=== PATIENT | male | born 1970 | race Caucasian/White ===

== ENCOUNTER 2022-07-30 13:18 | Inpatient (IN) | payer OTHER ==
--- NOTE | 2022-07-30 16:09 | NUR ---
SHIFT SUMMARY PT A&OX4, VSS/RA, DENIES N&V, PAIN 5/10 DENIES NEED FOR PAIN MEDICATION, INDEPENDENT IN ROOM, VOIDING, IVF @ 125 MLS/HR AND ZOSYN Q6 PER EMAR. DR AVITIA CONSULTED PT AND APPROVED NPO/SMALL AMT ICE CHIPS AND PO PAIN MEDS PRN. WILL REPORT TO ONCSMOOTH SKINNER RN.
[2022-07-31 04:18] LABS: BASOPHILS ABSOLUTE AUTO 0.02 K/mm3 (0.00-0.23); BASOPHILS PERCENT AUTO 0 % (0-2); EOSINOPHILS ABSOLUTE AUTO 0.05 K/mm3 (0.00-0.68); EOSINOPHILS PERCENT AUTO 1 % (0-6); Hematocrit 41.2 % (37.0-53.0); IMMATURE GRAN ABSOLUTE AUTO 0.02 K/mm3 (0.00-0.10); IMMATURE GRAN PERCENT AUTO 0 % (0-1); LYMPHOCYTES ABSOLUTE AUTO 1.33 K/mm3 (0.84-5.20); LYMPHOCYTES PERCENT AUTO 13 % (21-46); MONOCYTES ABSOLUTE AUTO 1.31 K/mm3 (0.16-1.47); MONOCYTES PERCENT AUTO 13 % (4-13); Mean Corpuscular HGB 31.2 pg (26.0-34.0); Mean Corpuscular Volume 92 fL (80-100); Mean Platelet Volume 8.7 fL (9.1-12.4); NEUTROPHILS ABSOLUTE AUTO 7.35 K/mm3 (1.96-9.15); NEUTROPHILS PERCENT AUTO 73 % (41-73); Platelet Count 196 K/mm3 (150-400); RDW Coefficient Variation 12.1 % (11.7-14.2); RDW Standard Deviation 40.9 fL (35.1-46.3); Red Blood Cell Count 4.49 M/mm3 (4.30-5.90); White Blood Cell Count 10.08 K/mm3 (4.00-11.30)
[2022-07-31 04:39] LABS: Albumin, Blood 3.3 g/dL (3.4-5.0); Bilirubin, Total 1.2 mg/dL (0.1-1.0); Bun/Creatinine Ratio 14.5 (12.0-20.0); Calcium, Blood 8.9 mg/dL (8.5-10.1); Creatinine, Blood 1.24 mg/dL (0.60-1.20); Globulin, Blood 3.3 g/dL (2.2-4.0); Potassium, Blood 4.1 mmol/L (3.5-5.5); Total Protein, Blood 6.6 g/dL (6.4-8.2)
--- NOTE | 2022-07-31 04:47 | NUR ---
REGIONAL BRANCH MANAGER SUMMARY PT AAOX4 AND PLEASANT. INDEPENDENT IN ROOM. ADMITTED FOR PERFED DIVERTICULITIS. PT DENIES N/V, ONLY REPORTS ABD PAIN. PAIN HAS BEEN WELL CONTROLLED WITH OXYCODONE 5 MG. PT HAS BEEN ABLE TO SLEEP MOST OF THE NIGHT. NPO EXCEPT MEDS AND ICE CHIPS, TOLERATING WELL. IV ZOSYN Q6 HR. VSS, WILL CONTINUE TO MONITOR.
--- NOTE | 2022-07-31 06:22 | NUR ---
PT REPORTED NOT VOIDING SINCE JUST BEFORE START OF SHIFT TONIGHT BUT STATED THAT IS NOT UNUSUAL FOR HIM AND THAT HE USUALLY VOIDS IN THE AM AFTER HE GETS UP AND WALKS AROUND A BIT. PT DENIED BLADDER SCAN. EDUCATED PT ON POSSIBLE NEED TO BLADDER SCAN IF PT UNABLE TO VOID BY LATER THIS AM.
--- NOTE | 2022-07-31 13:54 | NUR ---
PT TOLERATING CLEAR LIQUIDS WITH NO N/V, NO INCREASED PAIN. SALINE LOCKED AT APROX 1353.
--- NOTE | 2022-08-01 03:20 | NUR ---
CONCRETE FLOOR INSTALLER SUMMARY ABD PAIN MUCH IMPROVED TONIGHT, PT REPORTS PAIN LEVEL OF 2/10 MOST OF THE NIGHT. TOLERATING CLEAR LIQUID DIET WITH NO ISSUES. DENIES NEED FOR PAIN MEDICATIONS. IV ZOSYN Q6H. ORDER FOR LOW FIBER DIET WITH BREAKFAST TO START LATER THIS MORNING. VSS, WILL CONTINUE TO MONITOR.
[2022-08-01 07:55] LABS: BASOPHILS ABSOLUTE AUTO 0.04 K/mm3 (0.00-0.23); BASOPHILS PERCENT AUTO 1 % (0-2); EOSINOPHILS ABSOLUTE AUTO 0.11 K/mm3 (0.00-0.68); EOSINOPHILS PERCENT AUTO 2 % (0-6); Hematocrit 40.9 % (37.0-53.0); Hemoglobin 13.9 g/dL (13.5-17.5); IMMATURE GRAN ABSOLUTE AUTO 0.02 K/mm3 (0.00-0.10); IMMATURE GRAN PERCENT AUTO 0 % (0-1); LYMPHOCYTES ABSOLUTE AUTO 1.36 K/mm3 (0.84-5.20); LYMPHOCYTES PERCENT AUTO 21 % (21-46); MONOCYTES ABSOLUTE AUTO 0.84 K/mm3 (0.16-1.47); MONOCYTES PERCENT AUTO 13 % (4-13); Mean Corpuscular HGB 31.3 pg (26.0-34.0); Mean Corpuscular Volume 92 fL (80-100); Mean Platelet Volume 8.5 fL (9.1-12.4); NEUTROPHILS ABSOLUTE AUTO 4.23 K/mm3 (1.96-9.15); NEUTROPHILS PERCENT AUTO 64 % (41-73); Platelet Count 211 K/mm3 (150-400); RDW Coefficient Variation 11.9 % (11.7-14.2); RDW Standard Deviation 40.1 fL (35.1-46.3); Red Blood Cell Count 4.44 M/mm3 (4.30-5.90)
[2022-08-01 08:18] LABS: Albumin, Blood 3.2 g/dL (3.4-5.0); Albumin/Globulin Ratio 0.9 (0.8-1.8); Bilirubin, Total 0.9 mg/dL (0.1-1.0); Bun/Creatinine Ratio 12.5 (12.0-20.0); Calcium, Blood 9.3 mg/dL (8.5-10.1); Creatinine, Blood 1.2 mg/dL (0.60-1.20); Globulin, Blood 3.4 g/dL (2.2-4.0); Potassium, Blood 4.1 mmol/L (3.5-5.5); Total Protein, Blood 6.6 g/dL (6.4-8.2)
--- NOTE | 2022-08-01 11:02 | NUR ---
PT TOLERATED LOW FIBER DIET WITH NO N/V. DR AVITIA NOTIFIED.
[2022-08-01] MEDS ORDERED: ACET325 PO (12:08)
[2022-08-01] MEDS ORDERED: AMOCLA875 PO (12:09)
--- NOTE | 2022-08-01 12:17 | NUR ---
DISCHARGE PT DISCHARGED HOME FROM UNIT AT APROX 1212. PT GIVEN WRITTEN AND VERBAL DC INSTRUCTIONS AND VERBALIZED UNDERSTANDING OF THESE INSTRUCTINS. NEW RX FOR ABX FAXED TO [facility]. IV REMOVED, DECLINED WC TO CAR.
== END 2022-08-01 12:12 | disposition home or self-care (01) | DRG 392 ==
LOC: SURS 13:18
PROVIDERS: ADMIT Internal Medicine
DX: K57.20 Diverticulitis of large intestine with perforation and abscess without bleeding (principal); C81.90 Hodgkin lymphoma, unspecified, unspecified site; Z87.442 Personal history of urinary calculi; Z98.890 Other specified postprocedural states
CPT/HCPCS: 36415; 80053; 83605; 85025; 87040; A9270; J2543; J7050; J7120

== ENCOUNTER → 2024-11-05 | Outpatient (CLI) | payer OTHER ==
[~2024-11-05] MED LIST: ACET325 PO; AMOCLA875 PO; ASPI81CH PO; ATOR80 PO; OLME20 PO
[2024-11-05 17:00] LABS: BASOPHILS ABSOLUTE AUTO 0.02 K/mm3 (0.00-0.23); BASOPHILS PERCENT AUTO 0 % (0-2); EOSINOPHILS ABSOLUTE AUTO 0.07 K/mm3 (0.00-0.68); EOSINOPHILS PERCENT AUTO 1 % (0-6); Hematocrit 41.1 % (37.0-53.0); Hemoglobin 13.8 g/dL (13.5-17.5); IMMATURE GRAN ABSOLUTE AUTO 0.01 K/mm3 (0.00-0.10); IMMATURE GRAN PERCENT AUTO 0 % (0-1); LYMPHOCYTES ABSOLUTE AUTO 1.43 K/mm3 (0.84-5.20); LYMPHOCYTES PERCENT AUTO 24 % (21-46); MONOCYTES ABSOLUTE AUTO 0.53 K/mm3 (0.16-1.47); MONOCYTES PERCENT AUTO 9 % (4-13); Mean Corpuscular HGB 31.7 pg (26.0-34.0); Mean Corpuscular HGB Conc 33.6 g/dL (31.5-36.5); Mean Corpuscular Volume 94 fL (80-100); Mean Platelet Volume 8.9 fL (9.1-12.4); NEUTROPHILS ABSOLUTE AUTO 3.85 K/mm3 (1.96-9.15); NEUTROPHILS PERCENT AUTO 65 % (41-73); Platelet Count 233 K/mm3 (150-400); RDW Coefficient Variation 12.5 % (11.7-14.2); RDW Standard Deviation 43.4 fL (35.1-46.3); Red Blood Cell Count 4.36 M/mm3 (4.30-5.90); White Blood Cell Count 5.91 K/mm3 (4.00-11.30)
[2024-11-05 17:09] LABS: Albumin, Blood 4.1 g/dL (3.4-5.0); Albumin/Globulin Ratio 1.4 (0.8-1.8); Bilirubin, Total 0.5 mg/dL (0.1-1.0); Bun/Creatinine Ratio 13.9 (12.0-20.0); Calcium, Blood 9.3 mg/dL (8.5-10.1); Creatinine, Blood 1.22 mg/dL (0.60-1.20); Globulin, Blood 2.9 g/dL (2.2-4.0); Potassium, Blood 3.6 mmol/L (3.5-5.5)
== END ==
LOC: LAB 16:55 → LAB SHORT 16:55
DX: R31.29 Other microscopic hematuria (principal)
CPT/HCPCS: 80053; 85025